=== PATIENT | female | born 1995 | race Two or more races ===

== ENCOUNTER 2021-06-26 04:38 | Emergency (ER) | payer BC, OTHER ==
[2021-06-26 04:47] VITALS: BP 106/61; PULSE 46; TEMP 98.4; BMI 24.0
[2021-06-26] MEDS ORDERED: PHENAZOPYRIDINE HCL 100 MG TABLET (FP) PO ONE (04:56)
[2021-06-26] MEDS ORDERED: NITROFURANTOIN MACROCRYSTAL 50 MG CAPSULE (FP) ONE ×2 (05:00→05:02)
[2021-06-26] MEDS ORDERED: PHENAZOPYRIDINE HCL 100 MG TABLET (FP) ONE (05:00)
[2021-06-26] MEDS ORDERED: NITROFURANTOIN MACROCRYSTAL 50 MG CAPSULE (FP) PO SCH (05:00)
[2021-06-26 06:34] LABS: EPI CELLS 8 /uL (0-25.1); HYALINE CASTS 2 /uL (0-3.1); URINE APPEARANCE TURBID; URINE BACTERIA 558 /uL (0-1359); URINE BILIRUBIN NEGATIVE (NEGATIVE); URINE COLOR YELLOW; URINE GLUCOSE (UA) NEGATIVE (NEGATIVE); URINE KETONE NEGATIVE (NEGATIVE); URINE LEUK ESTERASE 3+ (NEGATIVE); URINE NITRITE NEGATIVE (NEGATIVE); URINE PROTEIN 1+ (NEGATIVE); URINE RBC 359 /uL (0-23.9); URINE UROBILINOGEN 0.2 mg/dL (0.2-1.0); URINE WBC 4954 /uL (0-25.8)
== END 2021-06-26 05:14 | disposition home or self-care (01) ==
LOC: FER 04:38
DX: N30.90 Cystitis, unspecified without hematuria (principal)
CPT/HCPCS: 81003; 81025; 87086; 87186; 99283-25